=== PATIENT | female | born 1950 | race Caucasian/White ===

== ENCOUNTER 2019-03-15 07:13 | Inpatient (IN) | payer MEDICARE ==
[~2019-03-15] VITALS: Ht 157.5 cm; Wt 89.0 kg
[~2019-03-15 07:13] MED LIST: BUPIVACAINE/PF 0.25% ONE; EPINEPHRINE 1 MG/ML, 1ML ONE; LIDOCAINE 1%-EPI 1:100K, 20ML ONE; THROMBIN 5,000 UNIT VIAL TP ONE; VANCOMYCIN 1,000 MG ONE
[2019-03-15] MEDS ORDERED: MEPERIDINE/PF 25MG/ML,1ML IVPush PRN (08:00)
[2019-03-15] MEDS ORDERED: FENTANYL PF 100 MCG/2ML IV PRN (08:00)
[2019-03-15] MEDS ORDERED: LABETALOL 5MG/ML, 20ML IV PRN (08:00)
[2019-03-15] MEDS ORDERED: EPHEDRINE 50 MG/ML, 1ML IVPush PRN (08:00)
[2019-03-15] MEDS ORDERED: HYDROmorphone 2 MG/ML, 1ML IVPush PRN (08:00)
[2019-03-15] MEDS ORDERED: hydrALAzine 20 MG/ML, 1ML IV PRN (08:00)
[2019-03-15] MEDS ORDERED: OXYcodone 5 MG/5 ML ORAL.SOL UDC PO PRN (08:00)
[2019-03-15] MEDS ORDERED: PROMETHAZINE 25 MG/ML, 1ML IV PRN (08:00)
[2019-03-15] MEDS ORDERED: ONDANSETRON 2MG/ML, 2ML IV PRN ×2 (08:00→14:30)
[2019-03-15 08:17] VITALS: BP 150/93
[2019-03-15] MEDS ORDERED: LACTATED RINGERS 1,000 ML IV SCH (08:30)
[2019-03-15] MEDS ORDERED: PLEASE ENTER HEIGHT AND WEIGHT MC SCH (08:30)
[2019-03-15] MEDS ORDERED: ACETAMINOPHEN 500 MG TABLET PO ONE (08:30)
[2019-03-15] MEDS ORDERED: PLEASE ENTER ALLERGIES MC SCH (08:30)
[2019-03-15] MEDS ORDERED: FENTANYL PF 100 MCG/2ML ONE (08:31)
[2019-03-15] MEDS ORDERED: OMEP-110 PO (08:34)
[2019-03-15] MEDS ORDERED: DULO60CA56 PO (08:34)
[2019-03-15] MEDS ORDERED: BENA10TA6 PO (08:34)
[2019-03-15] MEDS ORDERED: TRAZ-137 PO (08:34)
[2019-03-15] MEDS ORDERED: PROBIOTIC PO (08:34)
[2019-03-15] MEDS ORDERED: ATOR10TA9 PO (08:34)
[2019-03-15] MEDS ORDERED: CETI10TA24 PO (08:34)
[2019-03-15] MEDS ORDERED: OXYBUTYNIN PO (08:34)
[2019-03-15] MEDS ORDERED: PROPOFOL 10 MG/ML, 20ML ONE (08:35)
[2019-03-15] MEDS ORDERED: LIDOCAINE GEL 2%, 5ML ONE (08:35)
[2019-03-15] MEDS ORDERED: SUCCINYLCHOLINE 20 MG/ML, 10ML ONE (08:35)
[2019-03-15] MEDS ORDERED: DEXAMETHASONE 4 MG/ML, 1ML ONE ×2 (08:36)
[2019-03-15] MEDS ORDERED: LIDOCAINE-MPF 2% ,5ML ONE (08:36)
[2019-03-15] MEDS ORDERED: SODIUM CHLORIDE 0.9% PF 10ML ONE (08:39)
[2019-03-15] MEDS ORDERED: CEFAZOLIN 1,000 MG ONE (08:39)
[2019-03-15] MEDS ORDERED: KETOROLAC 30 MG/1 ML ONE (08:42)
[2019-03-15] MEDS ORDERED: PHENYLEPHRINE 10 MG/ML ONE (08:42)
[2019-03-15] MEDS ORDERED: LIDOCAINE/PF 0.5% ,50ML ONE (08:55)
[2019-03-15] MEDS ORDERED: MORPHINE SULFATE 4 MG/ML, 1ML IVPush PRN (09:00)
[2019-03-15] MEDS ORDERED: ONDANSETRON 2MG/ML, 2ML ONE (09:54)
[2019-03-15] MEDS ORDERED: GLYCOPYRROLATE 0.2MG/1ML, 5ML ONE (10:41)
[2019-03-15 14:12] VITALS: BP 142/72
[2019-03-15] MEDS ORDERED: PHARMACY MAY ADJ FOR RENAL FX MC PRN (14:30)
[2019-03-15] MEDS ORDERED: MAGNESIUM HYDROXIDE 8%, 30ML UDC PO PRN (14:30)
[2019-03-15] MEDS ORDERED: HYDROcodone/APAP 10/325 MG TABLET PO PRN (14:30)
[2019-03-15] MEDS ORDERED: BISACODYL 10 MG SUPP PR PRN (14:30)
[2019-03-15] MEDS ORDERED: morphine SULFATE 10 MG/ML, 1ML IV PRN (14:30)
[2019-03-15] MEDS ORDERED: TRAZODONE 100MG TABLET PO PRN (14:30)
[2019-03-15] MEDS ORDERED: PROMETHAZINE 25 MG/ML, 1ML IM PRN (14:30)
[2019-03-15] MEDS: D5%-0.9% NACL+KCL 20MEQ 1,000 ML IV SCH (14:31)
[2019-03-15] MEDS: CEFAZOLIN PMX 1GM/50ML 50 ML IVPB SCH (17:58)
[2019-03-15 19:10] VITALS: BP 147/82
[2019-03-15] MEDS: SENNA/DOCUSATE TABLET PO SCH (20:07)
[2019-03-15] MEDS: ATORVASTATIN 10 MG TABLET PO SCH (20:07)
[2019-03-16] VITALS: BP 137/72
[2019-03-16] MEDS: CEFAZOLIN PMX 1GM/50ML 50 ML IVPB SCH (01:02)
[2019-03-16] MEDS: D5%-0.9% NACL+KCL 20MEQ 1,000 ML IV SCH ×3 (02:15→20:11)
[2019-03-16 04:00] VITALS: BP 146/76
[2019-03-16 04:51] LABS: BASOPHILS # (AUTO) 0.08 x10^3/uL (0-0.1); BASOPHILS % (AUTO) 1 % (0-1); EOSINOPHILS # (AUTO) 0.01 x10^3/uL (0-0.4); EOSINOPHILS % (AUTO) 0 % (1-7); LYMPHOCYTES # (AUTO) 1.46 x10^3/uL (1-3.4); LYMPHOCYTES % (AUTO) 15 % (22-44); MD NO; MEAN CORPUSCULAR HEMOGLOBIN 31.6 pg (27.0-34.8); MEAN CORPUSCULAR HGB CONC 33.1 g/dL (32.4-35.8); MEAN CORPUSCULAR VOLUME 95.4 fL (80-100); MEAN PLATELET VOLUME 8.1 fL (7.4-10.4); MONOCYTES # (AUTO) 0.69 x10^3/uL (0.2-0.8); MONOCYTES % (AUTO) 7 % (2-9); NEUTROPHILS # (AUTO) 7.26 x10^3/uL (1.8-6.8); NEUTROPHILS % (AUTO) 77 % (42-75); PLATELET COUNT 198 x10^3/uL (130-400); RED BLOOD COUNT 3.98 x10^6/uL (3.82-5.3); RED CELL DISTRIBUTION WIDTH 13.1 % (9.6-15.2)
[2019-03-16 04:55] LABS: ANION GAP 3 mmol/L (5-15); CALCIUM 8.9 mg/dL (8.5-10.1); CHLORIDE 112 mmol/L (98-107); CREATININE 0.71 mg/dL (0.55-1.02)
[2019-03-16] MEDS: HYDROcodone/APAP 5/325 TABLET PO PRN ×2 (06:03→17:31)
[2019-03-16 07:23] VITALS: BP 152/86
[2019-03-16] MEDS: CETIRIZINE 10 MG TABLET PO SCH (09:07)
[2019-03-16] MEDS: OXYBUTYNIN CHLORIDE 5 MG TABLET PO SCH (09:07)
[2019-03-16] MEDS: BENAZEPRIL 10 MG TABLET PO SCH (09:07)
[2019-03-16] MEDS: SENNA/DOCUSATE TABLET PO SCH ×2 (09:07→20:25)
[2019-03-16] MEDS: DULOXETINE 30 MG CAPSULE.DR PO SCH (09:08)
[2019-03-16 13:12] VITALS: BP 156/81
[2019-03-16 18:51] VITALS: BP 159/90
[2019-03-16] MEDS: ATORVASTATIN 10 MG TABLET PO SCH (20:25)
[2019-03-17 01:52] VITALS: BP 164/97
[2019-03-17] MEDS: D5%-0.9% NACL+KCL 20MEQ 1,000 ML IV SCH (02:47)
[2019-03-17 05:36] LABS: BASOPHILS # (AUTO) 0.01 x10^3/uL (0-0.1); BASOPHILS % (AUTO) 0 % (0-1); EOSINOPHILS # (AUTO) 0.04 x10^3/uL (0-0.4); EOSINOPHILS % (AUTO) 1 % (1-7); LYMPHOCYTES # (AUTO) 1.13 x10^3/uL (1-3.4); LYMPHOCYTES % (AUTO) 14 % (22-44); MD NO; MEAN CORPUSCULAR HEMOGLOBIN 32.2 pg (27.0-34.8); MEAN CORPUSCULAR HGB CONC 33.5 g/dL (32.4-35.8); MEAN CORPUSCULAR VOLUME 96.1 fL (80-100); MEAN PLATELET VOLUME 8.2 fL (7.4-10.4); MONOCYTES % (AUTO) 9 % (2-9); NEUTROPHILS # (AUTO) 6.15 x10^3/uL (1.8-6.8); NEUTROPHILS % (AUTO) 77 % (42-75); PLATELET COUNT 184 x10^3/uL (130-400); RED BLOOD COUNT 4.09 x10^6/uL (3.82-5.3)
[2019-03-17 05:44] LABS: ANION GAP 5 mmol/L (5-15); CALCIUM 8.7 mg/dL (8.5-10.1); CHLORIDE 108 mmol/L (98-107); CREATININE 0.57 mg/dL (0.55-1.02)
[2019-03-17] MEDS ORDERED: OMEPRAZOLE 20 MG CAPSULE.DR PO SCH (06:00)
[2019-03-17 07:01] VITALS: BP 164/98
[2019-03-17] MEDS: OXYBUTYNIN CHLORIDE 5 MG TABLET PO SCH (08:39)
[2019-03-17] MEDS: SENNA/DOCUSATE TABLET PO SCH (08:39)
[2019-03-17] MEDS: CETIRIZINE 10 MG TABLET PO SCH (08:39)
[2019-03-17] MEDS: BENAZEPRIL 10 MG TABLET PO SCH (08:40)
[2019-03-17] MEDS: DULOXETINE 30 MG CAPSULE.DR PO SCH (08:40)
[2019-03-17] MEDS: HYDROcodone/APAP 5/325 TABLET PO PRN (12:31)
[2019-03-17] MEDS ORDERED: HYDR-3240 PO (13:38)
== END 2019-03-17 14:11 | disposition home or self-care (01) | DRG 460 ==
LOC: ORIP 07:13 → 4NE 13:24 → DCLOUNGE 03-17 13:56
PROVIDERS: ADMIT Orthopaedic Surgery Orthopaedic Surgery of the Spine; ATTEND Orthopaedic Surgery Orthopaedic Surgery of the Spine
PROC: 0SB20ZZ Excision of Lumbar Vertebral Disc, Open Approach (ICD-10-PCS; 2019-03-15)
PROC: 0SG00A0 Fusion of Lumbar Vertebral Joint with Interbody Fusion Device, Anterior Approach, Anterior Column, Open Approach (ICD-10-PCS; principal; 2019-03-15 09:00)
DX: M48.062 Spinal stenosis, lumbar region with neurogenic claudication (principal); M43.16 Spondylolisthesis, lumbar region; I10 Essential (primary) hypertension; Z96.653 Presence of artificial knee joint, bilateral; E78.5 Hyperlipidemia, unspecified; K21.9 Gastro-esophageal reflux disease without esophagitis; F41.9 Anxiety disorder, unspecified; Z88.6 Allergy status to analgesic agent; Z85.3 Personal history of malignant neoplasm of breast; Z88.8 Allergy status to other drugs, medicaments and biological substances
CPT/HCPCS: 36415; 72100; 80048; 85025; C1713; G0378; J0171; J0690; J1100; J1885; J2001; J2405; J2704; J3010; J3370; J3490; C1762; J0330; J2370; J3480; J7120

== ENCOUNTER 2019-03-22 07:55 | Inpatient (IN) | payer MEDICARE ==
[~2019-03-22] VITALS: Ht 157.5 cm; Wt 91.1 kg
[~2019-03-22 07:55] MED LIST changes: +ATOR10TA9 PO; +BENA10TA6 PO; +CETI10TA24 PO; +DULO60CA56 PO; +HYDR-3240 PO; -LIDOCAINE 1%-EPI 1:100K, 20ML ONE; +LIDOCAINE/PF 0.5% ,50ML ONE; +OMEP-110 PO; +OXYBUTYNIN PO; +PROBIOTIC PO; +TRAZ-137 PO
[2019-03-22] MEDS ORDERED: LACTATED RINGERS 1,000 ML IV SCH (08:14)
[2019-03-22 08:26] VITALS: BP 175/100
[2019-03-22] MEDS ORDERED: GABAPENTIN 300 MG CAPSULE PO ONE (08:30)
[2019-03-22] MEDS ORDERED: LIDOCAINE-MPF 1%, 2ML INFIL ONE (08:30)
[2019-03-22] MEDS ORDERED: ACETAMINOPHEN 500 MG TABLET PO ONE (08:30)
[2019-03-22] MEDS ORDERED: MIDAZOLAM 1 MG/ML, 2ML ONE (08:47)
[2019-03-22] MEDS ORDERED: FENTANYL PF 250 MCG/5ML ONE (08:48)
[2019-03-22] MEDS ORDERED: DEXAMETHASONE 4 MG/ML, 1ML ONE (08:54)
[2019-03-22] MEDS ORDERED: GLYCOPYRROLATE 0.2MG/1ML, 5ML ONE (08:54)
[2019-03-22] MEDS ORDERED: PROPOFOL 10 MG/ML, 20ML ONE (08:54)
[2019-03-22] MEDS ORDERED: PHENYLEPHRINE 10 MG/ML ONE (08:54)
[2019-03-22] MEDS ORDERED: NEOSTIGMINE 1 MG/ML, 10ML ONE (08:54)
[2019-03-22] MEDS ORDERED: ONDANSETRON 2MG/ML, 2ML ONE (08:54)
[2019-03-22] MEDS ORDERED: CEFAZOLIN 1,000 MG ONE (08:54)
[2019-03-22] MEDS ORDERED: OXYcodone 5 MG/5 ML ORAL.SOL UDC PO PRN (09:00)
[2019-03-22] MEDS ORDERED: MEPERIDINE/PF 25MG/ML,1ML IVPush PRN (09:00)
[2019-03-22] MEDS ORDERED: HALOPERIDOL 5 MG/ML IV PRN (09:00)
[2019-03-22] MEDS ORDERED: MORPHINE SULFATE 4 MG/ML, 1ML IVPush PRN (09:00)
[2019-03-22] MEDS ORDERED: FENTANYL PF 100 MCG/2ML IV PRN (09:00)
[2019-03-22] MEDS ORDERED: hydrALAzine 20 MG/ML, 1ML IV PRN (09:00)
[2019-03-22] MEDS ORDERED: PROMETHAZINE 25 MG/ML, 1ML IV PRN (09:00)
[2019-03-22] MEDS ORDERED: FLU VAC QS 19-20(4YR UP)CEL/PF 0.5 ML IM-VACC ONE (09:00)
[2019-03-22] MEDS ORDERED: LABETALOL 5MG/ML, 20ML IV PRN (09:00)
[2019-03-22] MEDS ORDERED: ROCURONIUM 10MG/ML,5ML ONE (10:20)
[2019-03-22] MEDS ORDERED: SUGAMMADEX 200 MG/2 ML IVPush ONE (11:05)
[2019-03-22] MEDS ORDERED: MEPERIDINE/PF 25MG/ML,1ML ONE (12:32)
[2019-03-22] MEDS ORDERED: TRAZODONE 100MG TABLET PO PRN (13:30)
[2019-03-22] MEDS ORDERED: HYDROcodone/APAP 5/325 TABLET PO PRN (13:30)
[2019-03-22] MEDS ORDERED: BISACODYL 10 MG SUPP PR PRN (13:30)
[2019-03-22] MEDS ORDERED: morphine SULFATE 10 MG/ML, 1ML IV PRN (13:30)
[2019-03-22] MEDS ORDERED: PROMETHAZINE 25 MG/ML, 1ML IM PRN (13:30)
[2019-03-22] MEDS ORDERED: ONDANSETRON 2MG/ML, 2ML IV PRN (13:30)
[2019-03-22] MEDS ORDERED: MAGNESIUM HYDROXIDE 8%, 30ML UDC PO PRN (13:30)
[2019-03-22] MEDS: D5%-0.9% NACL+KCL 20MEQ 1,000 ML IV SCH ×2 (15:22→23:30)
[2019-03-22 18:56] VITALS: BP 140/89
[2019-03-22] MEDS: CEFAZOLIN PMX 1GM/50ML 50 ML IVPB SCH (19:33)
[2019-03-22] MEDS: HYDROcodone/APAP 10/325 MG TABLET PO PRN ×2 (19:34→23:41)
[2019-03-22] MEDS: BENAZEPRIL 10 MG TABLET PO SCH (22:28)
[2019-03-22] MEDS: ATORVASTATIN 10 MG TABLET PO SCH (22:28)
[2019-03-22] MEDS: SENNA/DOCUSATE TABLET PO SCH (22:28)
[2019-03-22 23:43] VITALS: BP 118/74
[2019-03-23] MEDS: CEFAZOLIN PMX 1GM/50ML 50 ML IVPB SCH (01:03)
[2019-03-23] MEDS: HYDROcodone/APAP 10/325 MG TABLET PO PRN ×5 (04:00→19:56)
[2019-03-23 04:03] VITALS: BP 126/77
[2019-03-23] MEDS: OMEPRAZOLE 20 MG CAPSULE.DR PO SCH (05:38)
[2019-03-23] MEDS: SENNA/DOCUSATE TABLET PO SCH ×2 (08:03→19:54)
[2019-03-23] MEDS: CETIRIZINE 10 MG TABLET PO SCH (08:03)
[2019-03-23] MEDS: DULOXETINE 30 MG CAPSULE.DR PO SCH (08:03)
[2019-03-23] MEDS: OXYBUTYNIN CHLORIDE 5 MG TABLET PO SCH (08:04)
[2019-03-23 09:25] VITALS: BP 121/67
[2019-03-23] MEDS: D5%-0.9% NACL+KCL 20MEQ 1,000 ML IV SCH ×2 (09:30→16:08)
[2019-03-23 13:30] VITALS: BP 130/74
[2019-03-23] MEDS: BENAZEPRIL 10 MG TABLET PO SCH (19:55)
[2019-03-23] MEDS: ATORVASTATIN 10 MG TABLET PO SCH (19:56)
[2019-03-23 20:06] VITALS: BP 123/76
[2019-03-24] MEDS: HYDROcodone/APAP 10/325 MG TABLET PO PRN ×3 (00:06→08:18)
[2019-03-24 00:08] VITALS: BP 135/74
[2019-03-24] MEDS: D5%-0.9% NACL+KCL 20MEQ 1,000 ML IV SCH (05:10)
[2019-03-24] MEDS: OMEPRAZOLE 20 MG CAPSULE.DR PO SCH (06:00)
[2019-03-24 06:58] VITALS: BP 153/96
[2019-03-24] MEDS: OXYBUTYNIN CHLORIDE 5 MG TABLET PO SCH (08:17)
[2019-03-24] MEDS: SENNA/DOCUSATE TABLET PO SCH (08:18)
[2019-03-24] MEDS: DULOXETINE 30 MG CAPSULE.DR PO SCH (08:18)
[2019-03-24] MEDS: CETIRIZINE 10 MG TABLET PO SCH (08:18)
[2019-03-24] MEDS ORDERED: HYDR-36 PO (10:53)
== END 2019-03-24 11:37 | disposition home or self-care (01) | DRG 460 ==
LOC: ORIP 07:55 → 4NE 12:53 → DCLOUNGE 03-24 11:24
PROVIDERS: ADMIT Orthopaedic Surgery Orthopaedic Surgery of the Spine; ATTEND Orthopaedic Surgery Orthopaedic Surgery of the Spine
PROC: 0SG0071 Fusion of Lumbar Vertebral Joint with Autologous Tissue Substitute, Posterior Approach, Posterior Column, Open Approach (ICD-10-PCS; principal; 2019-03-22 10:00)
DX: M48.062 Spinal stenosis, lumbar region with neurogenic claudication (principal); T84.028A Dislocation of other internal joint prosthesis, initial encounter; E78.5 Hyperlipidemia, unspecified; I10 Essential (primary) hypertension; K21.9 Gastro-esophageal reflux disease without esophagitis; Z96.653 Presence of artificial knee joint, bilateral; M43.16 Spondylolisthesis, lumbar region; Z90.13 Acquired absence of bilateral breasts and nipples; Z85.3 Personal history of malignant neoplasm of breast
CPT/HCPCS: 72100; 90674; C1713; G0378; J0171; J0690; J1100; J2001; J2250; J2405; J2704; J2710; J3010; J3370; J3490; C1762; J2175; J2370; J3480; J7120

== ENCOUNTER 2020-01-11 13:57 | Day surgery (SDC) | payer MEDICARE ==
[2020-01-08 11:21] LABS: BASOPHILS # (AUTO) 0.02 x10^3/uL (0-0.1); BASOPHILS % (AUTO) 0 % (0-1); EOSINOPHILS # (AUTO) 0.06 x10^3/uL (0-0.4); EOSINOPHILS % (AUTO) 1 % (1-7); LYMPHOCYTES # (AUTO) 1.51 x10^3/uL (1-3.4); LYMPHOCYTES % (AUTO) 34 % (22-44); MD NO; MEAN CORPUSCULAR HEMOGLOBIN 30.3 pg (27.0-34.8); MEAN CORPUSCULAR HGB CONC 32.8 g/dL (32.4-35.8); MEAN CORPUSCULAR VOLUME 92.5 fL (80-100); MEAN PLATELET VOLUME 8.1 fL (7.4-10.4); MONOCYTES # (AUTO) 0.42 x10^3/uL (0.2-0.8); MONOCYTES % (AUTO) 9 % (2-9); NEUTROPHILS # (AUTO) 2.48 x10^3/uL (1.8-6.8); NEUTROPHILS % (AUTO) 55 % (42-75); PLATELET COUNT 230 x10^3/uL (130-400); RED BLOOD COUNT 4.11 x10^6/uL (3.82-5.3); RED CELL DISTRIBUTION WIDTH 14.3 % (9.6-15.2)
[2020-01-08 11:32] LABS: ALBUMIN 3.8 g/dL (3.4-5.0); ANION GAP 5 mmol/L (5-15); CALCIUM 9.2 mg/dL (8.5-10.1); CHLORIDE 112 mmol/L (98-107)
[2020-01-08 11:35] LABS: ALANINE AMINOTRANSFERASE 17 U/L (12-78); ALKALINE PHOSPHATASE 114 U/L (45-117); BILIRUBIN,TOTAL 0.5 mg/dL (0.2-1.0); CREATININE 0.73 mg/dL (0.55-1.02); TOTAL PROTEIN 6.8 g/dL (6.4-8.2)
[~2020-01-11] VITALS: Ht 157.5 cm; Wt 82.0 kg
[~2020-01-11 13:57] MED LIST changes: +BENA10TA59 PO; -BENA10TA6 PO; -BUPIVACAINE/PF 0.25% ONE; +BUSP15TA PO; -CETI10TA24 PO; +CETI10TA76 PO; +CHOL10003 PO; +COCO1000 PO; -EPINEPHRINE 1 MG/ML, 1ML ONE; +HYDR-3246 PO; +LACT1CAP35 PO; -LIDOCAINE/PF 0.5% ,50ML ONE; +MELO15TA24 PO; +METH750T87 PO; +OMEP20TA62 PO; +PHEN95TA25 PO; -THROMBIN 5,000 UNIT VIAL TP ONE; -TRAZ-137 PO; +TRAZ-175 PO; +TRAZ50TA66 PO; -VANCOMYCIN 1,000 MG ONE
[2020-01-11] MEDS ORDERED: LACTATED RINGERS 1,000 ML IV SCH (14:09)
[2020-01-11] MEDS ORDERED: CHLORHEXIDINE 15 ML UDC MM STA (14:12)
[2020-01-11 14:16] VITALS: BP 159/99
[2020-01-11] MEDS ORDERED: FENTANYL PF 100 MCG/2ML ONE ×3 (15:33)
[2020-01-11] MEDS ORDERED: ROCURONIUM 10MG/ML,5ML ONE (15:43)
[2020-01-11] MEDS ORDERED: PROPOFOL 10 MG/ML, 20ML ONE (15:43)
[2020-01-11] MEDS ORDERED: DEXAMETHASONE 4 MG/ML, 1ML ONE (15:43)
[2020-01-11] MEDS ORDERED: ONDANSETRON 2MG/ML, 2ML ONE (15:43)
[2020-01-11] MEDS ORDERED: NEOSTIGMINE 1 MG/ML, 10ML ONE (15:43)
[2020-01-11] MEDS ORDERED: GLYCOPYRROLATE 0.2MG/1ML, 5ML ONE (15:43)
[2020-01-11] MEDS ORDERED: CEFAZOLIN 1,000 MG ONE ×2 (15:43→16:00)
[2020-01-11] MEDS ORDERED: BUPIVACAINE/PF-EPI 0.5% 1:200K ONE (16:00)
[2020-01-11] MEDS ORDERED: GENTAMICIN 80 MG/2 ML ONE (16:00)
[2020-01-11] MEDS ORDERED: BACITRACIN 50,000 UNIT ONE (16:01)
[2020-01-11] MEDS ORDERED: MINERAL OIL 10 ML VIAL MC ONE (16:01)
[2020-01-11] MEDS ORDERED: PROPOFOL 100 ML ONE (16:20)
[2020-01-11] MEDS ORDERED: MEPERIDINE/PF 25MG/0.5ML IVPush PRN (16:30)
[2020-01-11] MEDS ORDERED: LABETALOL 5MG/ML, 20ML IV PRN (16:30)
[2020-01-11] MEDS ORDERED: morphine SULFATE 10 MG/ML, 1ML IVPush PRN (16:30)
[2020-01-11] MEDS ORDERED: HALOPERIDOL 5 MG/ML IV PRN (16:30)
[2020-01-11] MEDS ORDERED: OXYcodone 5 MG/5 ML ORAL.SOL UDC PO PRN (16:30)
[2020-01-11] MEDS ORDERED: PROMETHAZINE 25 MG/ML, 1ML IVPush PRN (16:30)
[2020-01-11] MEDS ORDERED: ACETAMINOPHEN 325 MG TABLET PO PRN (16:30)
[2020-01-11] MEDS ORDERED: hydrALAzine 20 MG/ML, 1ML IV PRN (16:30)
[2020-01-11] MEDS ORDERED: FENTANYL PF 100 MCG/2ML IV PRN (16:30)
[2020-01-11] MEDS ORDERED: PROPOFOL 50 ML ONE ×2 (16:56→18:04)
[2020-01-11] MEDS ORDERED: HYDR-3652 PO (20:32)
[2020-01-11] MEDS ORDERED: CEPH-368 PO (20:33)
[2020-01-11] MEDS ORDERED: ONDA4TAB7 PO (20:33)
== END 2020-01-11 21:00 | disposition home or self-care (01) ==
LOC: OUT 13:57 → 4NE 20:15 → OUT 21:00
PROVIDERS: ATTEND Plastic Surgery
DX: N65.0 Deformity of reconstructed breast (principal); Z20.828 Contact with and (suspected) exposure to other viral communicable diseases; T85.44XA Capsular contracture of breast implant, initial encounter; R22.2 Localized swelling, mass and lump, trunk; I10 Essential (primary) hypertension; K21.9 Gastro-esophageal reflux disease without esophagitis; F41.9 Anxiety disorder, unspecified; M19.90 Unspecified osteoarthritis, unspecified site; E78.00 Pure hypercholesterolemia, unspecified; Z79.899 Other long term (current) drug therapy; Z88.5 Allergy status to narcotic agent; Z88.8 Allergy status to other drugs, medicaments and biological substances; Z72.89 Other problems related to lifestyle; Z98.890 Other specified postprocedural states; Z96.653 Presence of artificial knee joint, bilateral; Z85.3 Personal history of malignant neoplasm of breast
CPT/HCPCS: 15777; 19340; 19366; 19371; 36415; 80053; 85025; 87635; 88300; 88305; 88342; 93005; C1729; C1789; J0690; J1100; J1580; J2405; J2704; J2710; J3010; J7120; G0378